=== PATIENT | male | born 1970 | race African-American/Black ===

== ENCOUNTER 2018-05-09 14:14 | Inpatient (IN) | payer OTHER ==
[2018-05-09 15:04] VITALS: BMI 34.7
--- NOTE | 2018-05-09 19:10 | HP ---
"CIWA Score - CIWA Score Nausea/Vomitin-Mild Nausea/No Vomiting Muscle Tremors: 4-Moderate,w/Arms Extend Anxiety: 4-Mod. Anxious/Guarded Agitation: 4-Moderately Restless Paroxysmal Sweats: 1-Minimal Palms Moist Orientation: 0-Oriented Tacttile Disturbances: 0-None Auditory Disturbances: 0-None Visual Disturbances: 0-None Headache: 2-Mild CIWA-Ar Total Score: 16 Admission ROS S - HPI Chief Complaint: Here for alcohol withdrawal. Allergies/Adverse Reactions: Allergies Allergy/AdvReac Type Severity Reaction Status Date / Time garlic Allergy Severe Swelling Verified 04/12/17 17:09 tomato Allergy Severe Swelling Verified 04/12/17 17:09 No Known Drug Allergies Allergy Verified 04/12/17 17:09 History of Present Illness: Alcohol use since age 16. Marijuana use since age 16. Crack/cocaine use since age 23. Denies opiate or benzo use. Denies seizures or blackouts. Hx sobriety from 92-97. Longest sobriety since then 10 months [id number] - was in a residential program. Hx: HTN, DM, acid reflux. Denies thoughts of harming self or others. Search Terms: Jayleen Nicole, 1970 Search Date: 05/09/2018 07:06:29 PM The Drug Utilization Report below displays all of the controlled substance prescriptions, if any, that your patient has filled in the last twelve months. The information displayed on this report is compiled from pharmacy submissions to the Department, and accurately reflects the information as submitted by the pharmacies. This report was requested by: Janet Martinez | Reference #: [id number] Patient Name: Jayleen Nicole Date: 1970 Address: [address] [place] [address] Sex: Male Rx Written Rx Dispensed Drug Quantity Days Supply Prescriber Name 03/26/2018 03/29/2018 androgel 1.62% gel pump 75gm 30 Heidi Melgar H 01/20/2018 01/21/2018 androgel 1.62% gel pump 75gm 30 Heidi eMlgar H 12/20/2017 12/23/2017 testosterone 50 mg/5 gram gel 30gm 30 Roberto Carlos Amor Jr, MD 09/27/2017 09/29/2017 androderm 4 mg/24hr patch 30 30 Lissett Loja D, TRANSFORMATION CONSULTANT Exam Limitations: No Limitations - Ebola screening Have you traveled outside of the country in the last 21 days: No Have you had contact with anyone from an Ebola affected area: No Have you been sick,other than usual withdrawal symptoms: No Do you have a fever: No - Review of Systems Constitutional: Chills, Diaphoresis, Weight Stable EENT: reports: No Symptoms Reported Respiratory: reports: No Symptoms reported Cardiac: reports: No Symptoms Reported GI: reports: Indigestion (Acid reflux) : reports: No Symptoms Reported Musculoskeletal: reports: No Symptoms Reported Integumentary: reports: No Symptoms Reported Neuro: reports: Headache (r/t withdrawal), Tremors Endocrine: reports: No Symptoms Reported Hematology: reports: No Symptoms Reported Psychiatric: reports: Judgement Intact, Orientated x3, Agitated, Anxious Patient History - Patient Medical History Hx Asthma: No Hx Chronic Obstructive Pulmonary Disease (COPD): No Hx Cardiac Disorders: No Hx Congestive Heart Failure: No Hx Hypertension: Yes (BP:144/67 on meds. Took today) Hx Hypercholesterolemia: No Hx Pacemaker: No HX Cerebrovascular Accident: No Hx Seizures: No Hx Dementia: No Hx Diabetes: Yes (BGM: 104mg/dl on Metformin) Hx Gastrointestinal Disorders: Yes (Acid Reflux) Hx Liver Disease: No Hx Genitourinary Disorders: No Hx Sexually Transmitted Disorders: No Hx Renal Disease (ESRD): No Hx Thyroid Disease: No Hx Human Immunodeficiency Virus (HIV): No (2017) Hx Hepatitis C: No Hx Depression: No Hx Suicide Attempt: No Hx Bipolar Disorder: No Hx Schizophrenia: No - Patient Surgical History Past Surgical History: No Hx Neurologic Surgery: No Hx Cataract Extraction: No Hx Cardiac Surgery: No Hx Lung Surgery: No Hx Breast Surgery: No Hx Breast Biopsy: No Hx Abdominal Surgery: No Hx Appendectomy: No Hx Cholecystectomy: No Hx Genitourinary Surgery: No Hx Orthopedic Surgery: No Anesthesia Reaction: No - PPD History Previous Implant?: Yes Documented Results: Negative w/o proof Date: 10/15/14 PPD to be Administered?: Yes - Smoking Cessation Smoking history: Current every day smoker Have you smoked in the past 12 months: Yes Aproximately how many cigarettes per day: 10 Hx Chewing Tobacco Use: No Initiated information on smoking cessation: Yes 'Breaking Loose' booklet given: 05/09/18 - Substance & Tx. History Hx Alcohol Use: Yes Hx Substance Use: Yes Substance Use Type: Alcohol, Cocaine (crack/cocaine), Marijuana Hx Substance Use Treatment: Yes (detox, rehabs, residential) - Substances Abused Alcohol Route: Oral Frequency: Daily Amount used: Liquor 1.5 pint/ Beer 2-3 x 40oz Age of first use: 16 Date of Last Use: 05/09/18 Crack Route: Smoking Frequency: Daily Amount used: $150 Age of first use: 23 Date of Last Use: 05/08/18 (10 pm) Marijuana/Hashish Route: Smoking Frequency: Daily Amount used: $25 Age of first use: 16 Date of Last Use: 05/09/18 (10 am) Admission Physical Exam S - Vital Signs Vital Signs: Vital Signs - 24 hr 05/09/18 15:02 Temperature 97.2 F L Pulse Rate 84 Respiratory 20 Rate Blood Pressure 144/67 - Physical General Appearance: Yes: Nourished, Mild Distress, Tremorous, Irritable, Sweating, Anxious HEENTM: Yes: EOMI (Involuntary movement of eyes w/ lateral gaze during EOMI ellicitation), Hearing grossly Normal, Normocephalic, Normal Voice, MEME Respiratory: Yes: Chest Non-Tender, Lungs Clear, Normal Breath Sounds, No Respiratory Distress Neck: Yes: No masses,lesions,Nodules, Supple Breast: Yes: Breast Exam Deferred Cardiology: Yes: Regular Rhythm, Regular Rate, S1, S2 (Split) Abdominal: Yes: Non Tender, Soft, Increased Bowel Sounds, Protuberent ( increased abdominal adiposity) Genitourinary: Yes: Within Normal Limits Back: Yes: Normal Inspection Musculoskeletal: Yes: full range of Motion, Gait Steady Extremities: Yes: Normal Capillary Refill, Normal Range of Motion, Non-Tender, Tremors (of hands when arms extended) Neurological: Yes: president II-XII NML intact (mild involutary movement of lateral gaze.), Fully Oriented, Alert, Motor Strength 5/5, Normal Mood/Affect Integumentary: Yes: Normal Color, Dry, Warm, Diaphoresis (forehead) Lymphatic: Yes: Within Normal Limits - Diagnostic (1) GERD (gastroesophageal reflux disease) Current Visit: Yes Status: Acute Qualifiers: Esophagitis presence: esophagitis presence not specified Qualified Code(s) : K21.9 - Gastro-esophageal reflux disease without esophagitis (2) Alcohol dependence Current Visit: No Status: Chronic Qualifiers: Substance use status: in withdrawal Complication of substance-induced condition: uncomplicated Qualified Code(s): F10.230 - Alcohol dependence with withdrawal, uncomplicated (3) Cannabis dependence Current Visit: Yes Status: Chronic (4) Cocaine dependence Current Visit: Yes Status: Chronic Qualifiers: Substance use status: uncomplicated Qualified Code(s): F14.20 - Cocaine dependence, uncomplicated (5) HTN (hypertension) Current Visit: Yes Status: Chronic Qualifiers: Hypertension type: essential hypertension Qualified Code(s): I10 - Essential (primary) hypertension (6) Obese Current Visit: Yes Status: Chronic Qualifiers: Obesity type: due to excess calories Obesity classification: adult class 1 (BMI 30 - 34.9) Serious obesity comorbidity presence: unspecified whether serious comorbidity present Body mass index: BMI 34.0-34.9 Qualified Code(s) : E66.09 - Other obesity due to excess calories; Z68.34 - Body mass index (BMI) 34.0-34.9, adult (7) Diabetes Current Visit: Yes Status: Acute Qualifiers: Diabetes mellitus type: type 2 Diabetes mellitus halfway insulin use: without halfway use Diabetes mellitus complication status: without complication Qualified Code(s): E11.9 - Type 2 diabetes mellitus without complications (8) Nicotine dependence Current Visit: Yes Status: Chronic Qualifiers: Nicotine product type: cigarettes Substance use status: in withdrawal Qualified Code(s): F17.213 - Nicotine dependence, cigarettes, with withdrawal Cleared for Admission S - Detox or Rehab [facility] Level of Care: Medically Managed Detox Regimen/Protocol: Librium [facility] Breath Alcohol Content Breath Alcohol Content: 0 Urine Drug Screen - Results Drug Screen Negative: No Urine Drug Screen Results: THC-Marijuana, NAOMI-Cocaine, BZO-Benzodiazepines"
[2018-05-09] MEDS ORDERED: hydrOXYzine PAMOATE 50 MG CAPSULE (FP) PO PRN (19:37)
[2018-05-09] MEDS ORDERED: MAGNESIUM HYDROX 2400MG/30ML ORAL SUSPENSION 30 ML CUP PO PRN (19:37)
[2018-05-09] MEDS ORDERED: P-EPHED 60MG/TRIPROLIDI 2.5MG TABLET PO PRN (19:37)
[2018-05-09] MEDS ORDERED: NICOTINE POLACRILEX 2 MG GUM BC PRN (19:37)
[2018-05-09] MEDS ORDERED: LOPERAMIDE HCL 2 MG CAPSULE PO PRN (19:37)
[2018-05-09] MEDS ORDERED: IBUPROFEN 400 MG TABLET (FP) PO PRN (19:37)
[2018-05-09] MEDS ORDERED: MAGNESIUM CITRATE 300 ML BOTTLE PO PRN (19:37)
[2018-05-09] MEDS ORDERED: guaiFENesin/D-METHORPHAN HB 10 ML UNIT-DOSE CUPS PO PRN (19:37)
[2018-05-09] MEDS ORDERED: ACETAMINOPHEN 325 MG TABLET (FP) PO PRN (19:37)
[2018-05-09] MEDS ORDERED: MENTHOL/PHENOL 1 EACH UD MM PRN (19:37)
[2018-05-09] MEDS ORDERED: chlordiazePOXIDE HCL 25 MG CAPSULE PO PRN (19:37)
[2018-05-09] MEDS: metFORMIN HCL 500 MG TABLET (FP) PO SCH (20:32)
[2018-05-09] MEDS ORDERED: MELATONIN 5 MG TABLETS PO PRN (22:00)
[2018-05-09] MEDS: THIAMINE HCL 100 MG TABLET (FP) PO SCH (22:42)
[2018-05-09] MEDS: RANITIDINE HCL 150 MG TABLET (FP) PO SCH (22:43)
[2018-05-09] MEDS: chlordiazePOXIDE HCL 25 MG CAPSULE PO SCH (22:43)
[2018-05-09 23:24] LABS: URINE APPEARANCE TURBID; URINE BILIRUBIN NEGATIVE (<2.0 mg/dL); URINE COLOR YELLOW; URINE GLUCOSE (UA) NEGATIVE (NEGATIVE); URINE KETONE NEGATIVE (NEGATIVE); URINE LEUK ESTERASE NEGATIVE (NEGATIVE); URINE NITRITE NEGATIVE (NEGATIVE); URINE UROBILINOGEN NEGATIVE mg/dL (0.2-1.0)
[2018-05-09 23:25] LABS: URINE PROTEIN 1+ (NEGATIVE)
[2018-05-09 23:28] LABS: URINE BACTERIA RARE /hpf (NONE SEEN); URINE MUCUS RARE
[2018-05-10] MEDS: chlordiazePOXIDE HCL 25 MG CAPSULE PO SCH ×4 (05:34→22:49)
[2018-05-10] MEDS: metFORMIN HCL 500 MG TABLET (FP) PO SCH ×2 (06:44→16:51)
[2018-05-10 10:29] LABS: HEMOGLOBIN 13.4 GM/dL (11.7-16.9); MCH 29.6 pg (25.7-33.7); MCHC 31.8 g/dl (32.0-35.9); MEAN CELL VOLUME 93.1 fl (80-96); MEAN PLT VOLUME 9.9 fl (7.5-11.1); PLATELET COUNT 230 K/MM3 (134-434); RBC 4.51 M/mm3 (4.00-5.60); WHITE BLOOD COUNT 4.8 K/mm3 (4.0-10.0)
[2018-05-10] MEDS: NICOTINE 14 MG/24 HOURS TOPICAL PATCH TD SCH (11:04)
[2018-05-10] MEDS: NIFEdipine E.R. 90 MG TABLET (FP) PO SCH (11:04)
[2018-05-10] MEDS: PRENATAL VITAMINS W/ FOLIC ACID TABLET (FP) PO SCH (11:04)
[2018-05-10 11:34] LABS: CHLORIDE 105 mmol/L (98-107); POTASSIUM 4.3 mmol/L (3.5-5.1); SODIUM 143 mmol/L (136-145)
[2018-05-10 11:57] LABS: ALBUMIN 3.4 g/dl (3.4-5.0); ALK PHOS 49 U/L (45-117); ANION GAP 9 MMOL/L (8-16); BILIRUBIN,TOTAL 0.3 mg/dL (0.2-1.0); BLOOD UREA NITROGEN 11 mg/dL (7-18); CALCIUM 9.1 mg/dL (8.5-10.1); CO2 29 mmol/L (21-32); CREATININE 1.2 mg/dL (0.7-1.3); GLUCOSE,RANDOM 103 mg/dL (74-106); SGOT/AST 27 U/L (15-37); SGPT/ALT 40 U/L (12-78); TOT PROT 6.8 g/dl (6.4-8.2)
--- NOTE | 2018-05-10 12:31 | CONSULT ---
[facility] Psychiatric Consult - Data Date of interview: 05/10/18 Identifying data: Roll Dough Divider approached patient bedside for psychiatric consultation. Pt. refused. Stated, " I don't need to see you. I'm fine." Nursing staff informed.
--- NOTE | 2018-05-10 14:31 | PN ---
[facility] CIWA - CIWA Score Nausea/Vomitin-Mild Nausea/No Vomiting Muscle Tremors: 4-Moderate,w/Arms Extend Anxiety: 3 Agitation: 3 Paroxysmal Sweats: 1-Minimal Palms Moist Orientation: 0-Oriented Tacttile Disturbances: 1-Very Mild Itch/Numbness Auditory Disturbances: 0-None Visual Disturbances: 0-None Headache: 0-None Present CIWA-Ar Total Score: 13 BHS Progress Note (SOAP) Subjective: sweat tremor restlessness anxiety Objective: 05/10/18 14:33 Vital Signs Temperature 97.7 F 05/10/18 13:18 Pulse Rate 84 05/10/18 13:18 Respiratory Rate 20 05/10/18 13:18 Blood Pressure 165/93 05/10/18 13:18 O2 Sat by Pulse Oximetry (%) Laboratory Last Values WBC 4.8 K/mm3 (4.0-10.0) 05/10/18 07:00 RBC 4.51 M/mm3 (4.00-5.60) 05/10/18 07:00 Hgb 13.4 GM/dL (11.7-16.9) 05/10/18 07:00 Hct 42.0 % (35.4-49) 05/10/18 07:00 MCV 93.1 fl (80-96) 05/10/18 07:00 MCH 29.6 pg (25.7-33.7) 05/10/18 07:00 MCHC 31.8 g/dl (32.0-35.9) L 05/10/18 07:00 RDW 16.0 % (11.9-15.9) H 05/10/18 07:00 Plt Count 230 K/MM3 (134-434) 05/10/18 07:00 MPV 9.9 fl (7.5-11.1) 05/10/18 07:00 Sodium 143 mmol/L (136-145) 05/10/18 07:00 Potassium 4.3 mmol/L (3.5-5.1) 05/10/18 07:00 Chloride 105 mmol/L (98-107) 05/10/18 07:00 Carbon Dioxide 29 mmol/L (21-32) 05/10/18 07:00 Anion Gap 9 MMOL/L (8-16) 05/10/18 07:00 BUN 11 mg/dL (7-18) 05/10/18 07:00 Creatinine 1.2 mg/dL (0.7-1.3) 05/10/18 07:00 Creat Clearance w eGFR > 60 (>60) 05/10/18 07:00 POC Glucometer 103 UNITS (80-120) 05/10/18 11:10 Random Glucose 103 mg/dL (74-106) D 05/10/18 07:00 Calcium 9.1 mg/dL (8.5-10.1) 05/10/18 07:00 Total Bilirubin 0.3 mg/dL (0.2-1.0) 05/10/18 07:00 AST 27 U/L (15-37) 05/10/18 07:00 ALT 40 U/L (12-78) 05/10/18 07:00 Alkaline Phosphatase 49 U/L (45-117) 05/10/18 07:00 Total Protein 6.8 g/dl (6.4-8.2) 05/10/18 07:00 Albumin 3.4 g/dl (3.4-5.0) 05/10/18 07:00 Urine Color Yellow 05/09/18 23:08 Urine Appearance Turbid 05/09/18 23:08 Urine pH 5.0 (5.0-8.0) 05/09/18 23:08 Ur Specific [place] 1.027 (1.001-1.035) 05/09/18 23:08 Urine Protein 1+ (NEGATIVE) H 05/09/18 23:08 Urine Glucose (UA) Negative (NEGATIVE) 05/09/18 23:08 Urine Ketones Negative (NEGATIVE) 05/09/18 23:08 Urine Blood Negative (NEGATIVE) 05/09/18 23:08 Urine Nitrite Negative (NEGATIVE) 05/09/18 23:08 Urine Bilirubin Negative (<2.0 mg/dL) 05/09/18 23:08 Urine Urobilinogen Negative mg/dL (0.2-1.0) 05/09/18 23:08 Ur Leukocyte Esterase Negative (NEGATIVE) 05/09/18 23:08 Urine WBC (Auto) 23 /hpf (3-5) 05/09/18 23:08 Urine RBC (Auto) 2 /hpf (0-3) 05/09/18 23:08 Urine Bacteria Rare /hpf (NONE SEEN) 05/09/18 23:08 Urine Mucus Rare 05/09/18 23:08 RPR Titer Nonreactive (NONREACTIVE) 05/10/18 07:00 lab noted Assessment: 05/10/18 14:39 withdrawal sx Plan: continue detox
--- NOTE | 2018-05-10 17:23 | EKG ---
Test Reason : Blood Pressure : / mmHG Vent. Rate : 078 BPM Atrial Rate : 078 BPM P-R Int : 158 ms QRS Dur : 090 ms QT Int : 392 ms P-R-T Axes : 065 062 009 degrees QTc Int : 446 ms NORMAL SINUS RHYTHM NORMAL ECG NO PREVIOUS ECGS AVAILABLE Confirmed by MD YOLANDA, TENISHA ([id number]) on 05/10/2018 5:22:46 PM Referred By: Confirmed By:TENISHA GUERRERO MD
[2018-05-10] MEDS: THIAMINE HCL 100 MG TABLET (FP) PO SCH (22:49)
[2018-05-10] MEDS: RANITIDINE HCL 150 MG TABLET (FP) PO SCH (22:49)
[2018-05-11] MEDS: chlordiazePOXIDE HCL 25 MG CAPSULE PO SCH ×3 (06:22→17:23)
[2018-05-11] MEDS: metFORMIN HCL 500 MG TABLET (FP) PO SCH ×2 (06:46→17:22)
[2018-05-11] MEDS: PRENATAL VITAMINS W/ FOLIC ACID TABLET (FP) PO SCH (10:12)
[2018-05-11] MEDS: NICOTINE 14 MG/24 HOURS TOPICAL PATCH TD SCH (10:12)
[2018-05-11] MEDS: NIFEdipine E.R. 90 MG TABLET (FP) PO SCH (10:12)
--- NOTE | 2018-05-11 12:58 | PN ---
[facility] CIWA - CIWA Score Nausea/Vomitin-Mild Nausea/No Vomiting Muscle Tremors: 3 Anxiety: 3 Agitation: 3 Paroxysmal Sweats: 1-Minimal Palms Moist Orientation: 0-Oriented Tacttile Disturbances: 1-Very Mild Itch/Numbness Auditory Disturbances: 0-None Visual Disturbances: 0-None Headache: 0-None Present CIWA-Ar Total Score: 12 BHS Progress Note (SOAP) Subjective: tremor sweat restlessness discuss aftercare patient is alert oriented x 3 Objective: 05/11/18 12:57 Vital Signs Temperature 97.0 F L 05/11/18 09:27 Pulse Rate 86 05/11/18 09:27 Respiratory Rate 18 05/11/18 09:27 Blood Pressure 153/76 05/11/18 09:27 O2 Sat by Pulse Oximetry (%) Laboratory Last Values WBC 4.8 K/mm3 (4.0-10.0) 05/10/18 07:00 RBC 4.51 M/mm3 (4.00-5.60) 05/10/18 07:00 Hgb 13.4 GM/dL (11.7-16.9) 05/10/18 07:00 Hct 42.0 % (35.4-49) 05/10/18 07:00 MCV 93.1 fl (80-96) 05/10/18 07:00 MCH 29.6 pg (25.7-33.7) 05/10/18 07:00 MCHC 31.8 g/dl (32.0-35.9) L 05/10/18 07:00 RDW 16.0 % (11.9-15.9) H 05/10/18 07:00 Plt Count 230 K/MM3 (134-434) 05/10/18 07:00 MPV 9.9 fl (7.5-11.1) 05/10/18 07:00 Sodium 143 mmol/L (136-145) 05/10/18 07:00 Potassium 4.3 mmol/L (3.5-5.1) 05/10/18 07:00 Chloride 105 mmol/L (98-107) 05/10/18 07:00 Carbon Dioxide 29 mmol/L (21-32) 05/10/18 07:00 Anion Gap 9 MMOL/L (8-16) 05/10/18 07:00 BUN 11 mg/dL (7-18) 05/10/18 07:00 Creatinine 1.2 mg/dL (0.7-1.3) 05/10/18 07:00 Creat Clearance w eGFR > 60 (>60) 05/10/18 07:00 POC Glucometer 102 UNITS (80-120) 05/11/18 06:23 Random Glucose 103 mg/dL (74-106) D 05/10/18 07:00 Calcium 9.1 mg/dL (8.5-10.1) 05/10/18 07:00 Total Bilirubin 0.3 mg/dL (0.2-1.0) 05/10/18 07:00 AST 27 U/L (15-37) 05/10/18 07:00 ALT 40 U/L (12-78) 05/10/18 07:00 Alkaline Phosphatase 49 U/L (45-117) 05/10/18 07:00 Total Protein 6.8 g/dl (6.4-8.2) 05/10/18 07:00 Albumin 3.4 g/dl (3.4-5.0) 05/10/18 07:00 Urine Color Yellow 05/09/18 23:08 Urine Appearance Turbid 05/09/18 23:08 Urine pH 5.0 (5.0-8.0) 05/09/18 23:08 Ur Specific [place] 1.027 (1.001-1.035) 05/09/18 23:08 Urine Protein 1+ (NEGATIVE) H 05/09/18 23:08 Urine Glucose (UA) Negative (NEGATIVE) 05/09/18 23:08 Urine Ketones Negative (NEGATIVE) 05/09/18 23:08 Urine Blood Negative (NEGATIVE) 05/09/18 23:08 Urine Nitrite Negative (NEGATIVE) 05/09/18 23:08 Urine Bilirubin Negative (<2.0 mg/dL) 05/09/18 23:08 Urine Urobilinogen Negative mg/dL (0.2-1.0) 05/09/18 23:08 Ur Leukocyte Esterase Negative (NEGATIVE) 05/09/18 23:08 Urine WBC (Auto) 23 /hpf (3-5) 05/09/18 23:08 Urine RBC (Auto) 2 /hpf (0-3) 05/09/18 23:08 Urine Bacteria Rare /hpf (NONE SEEN) 05/09/18 23:08 Urine Mucus Rare 05/09/18 23:08 RPR Titer Nonreactive (NONREACTIVE) 05/10/18 07:00 lab noted aware of medication non adhesive Assessment: 05/11/18 12:58 withdrawal sx Plan: continue detox
[2018-05-11] MEDS: MAG HYDROX/AL HYDROX/SIMETH 30 ML UNIT-DOSE CUP PO PRN (20:22)
[2018-05-11] MEDS: THIAMINE HCL 100 MG TABLET (FP) PO SCH (22:31)
[2018-05-11] MEDS: RANITIDINE HCL 150 MG TABLET (FP) PO SCH (22:31)
[2018-05-11] MEDS: chlordiazePOXIDE 5 MG CAPSULE PO SCH (22:31)
[2018-05-12] MEDS: chlordiazePOXIDE 5 MG CAPSULE PO SCH ×3 (05:37→18:40)
[2018-05-12] MEDS: metFORMIN HCL 500 MG TABLET (FP) PO SCH ×2 (06:14→18:39)
[2018-05-12] MEDS: NICOTINE 14 MG/24 HOURS TOPICAL PATCH TD SCH (10:15)
[2018-05-12] MEDS: PRENATAL VITAMINS W/ FOLIC ACID TABLET (FP) PO SCH (10:15)
[2018-05-12] MEDS: NIFEdipine E.R. 90 MG TABLET (FP) PO SCH (10:16)
--- NOTE | 2018-05-12 12:28 | PN ---
BHS Progress Note (SOAP) Subjective: feeling better no tremor less sweat sleep better at night Objective: 05/12/18 12:36 Vital Signs Temperature 97.9 F 05/12/18 09:07 Pulse Rate 93 H 05/12/18 09:07 Respiratory Rate 18 05/12/18 09:07 Blood Pressure 130/75 05/12/18 09:07 O2 Sat by Pulse Oximetry (%) Laboratory Last Values WBC 4.8 K/mm3 (4.0-10.0) 05/10/18 07:00 RBC 4.51 M/mm3 (4.00-5.60) 05/10/18 07:00 Hgb 13.4 GM/dL (11.7-16.9) 05/10/18 07:00 Hct 42.0 % (35.4-49) 05/10/18 07:00 MCV 93.1 fl (80-96) 05/10/18 07:00 MCH 29.6 pg (25.7-33.7) 05/10/18 07:00 MCHC 31.8 g/dl (32.0-35.9) L 05/10/18 07:00 RDW 16.0 % (11.9-15.9) H 05/10/18 07:00 Plt Count 230 K/MM3 (134-434) 05/10/18 07:00 MPV 9.9 fl (7.5-11.1) 05/10/18 07:00 Sodium 143 mmol/L (136-145) 05/10/18 07:00 Potassium 4.3 mmol/L (3.5-5.1) 05/10/18 07:00 Chloride 105 mmol/L (98-107) 05/10/18 07:00 Carbon Dioxide 29 mmol/L (21-32) 05/10/18 07:00 Anion Gap 9 MMOL/L (8-16) 05/10/18 07:00 BUN 11 mg/dL (7-18) 05/10/18 07:00 Creatinine 1.2 mg/dL (0.7-1.3) 05/10/18 07:00 Creat Clearance w eGFR > 60 (>60) 05/10/18 07:00 POC Glucometer 113 UNITS (80-120) 05/12/18 05:39 Random Glucose 103 mg/dL (74-106) D 05/10/18 07:00 Calcium 9.1 mg/dL (8.5-10.1) 05/10/18 07:00 Total Bilirubin 0.3 mg/dL (0.2-1.0) 05/10/18 07:00 AST 27 U/L (15-37) 05/10/18 07:00 ALT 40 U/L (12-78) 05/10/18 07:00 Alkaline Phosphatase 49 U/L (45-117) 05/10/18 07:00 Total Protein 6.8 g/dl (6.4-8.2) 05/10/18 07:00 Albumin 3.4 g/dl (3.4-5.0) 05/10/18 07:00 Urine Color Yellow 05/09/18 23:08 Urine Appearance Turbid 05/09/18 23:08 Urine pH 5.0 (5.0-8.0) 05/09/18 23:08 Ur Specific [place] 1.027 (1.001-1.035) 05/09/18 23:08 Urine Protein 1+ (NEGATIVE) H 05/09/18 23:08 Urine Glucose (UA) Negative (NEGATIVE) 05/09/18 23:08 Urine Ketones Negative (NEGATIVE) 05/09/18 23:08 Urine Blood Negative (NEGATIVE) 05/09/18 23:08 Urine Nitrite Negative (NEGATIVE) 05/09/18 23:08 Urine Bilirubin Negative (<2.0 mg/dL) 05/09/18 23:08 Urine Urobilinogen Negative mg/dL (0.2-1.0) 05/09/18 23:08 Ur Leukocyte Esterase Negative (NEGATIVE) 05/09/18 23:08 Urine WBC (Auto) 23 /hpf (3-5) 05/09/18 23:08 Urine RBC (Auto) 2 /hpf (0-3) 05/09/18 23:08 Urine Bacteria Rare /hpf (NONE SEEN) 05/09/18 23:08 Urine Mucus Rare 05/09/18 23:08 RPR Titer Nonreactive (NONREACTIVE) 05/10/18 07:00 lab noted Assessment: 05/12/18 12:37 mild withdrawal sx Plan: medically supervised detox
[2018-05-12] MEDS: CLOTRIMAZOLE 1% CREAM 15 GM TUBE TP SCH ×3 (13:00→23:05)
[2018-05-12] MEDS: MAG HYDROX/AL HYDROX/SIMETH 30 ML UNIT-DOSE CUP PO PRN (20:22)
[2018-05-12] MEDS: chlordiazePOXIDE HCL 10 MG CAPSULE PO SCH (22:15)
[2018-05-12] MEDS: RANITIDINE HCL 150 MG TABLET (FP) PO SCH (22:16)
[2018-05-12] MEDS: THIAMINE HCL 100 MG TABLET (FP) PO SCH (23:05)
[2018-05-13] MEDS: chlordiazePOXIDE HCL 10 MG CAPSULE PO SCH (06:05)
[2018-05-13] MEDS: metFORMIN HCL 500 MG TABLET (FP) PO SCH (06:08)
--- NOTE | 2018-05-13 08:51 | DS ---
[facility] Detox Discharge Summary Admission Date: 05/09/18 Discharge Date: 05/13/18 - History Present History: Alcohol Dependence, Cannabis Dependence, Cocaine Dependence - Physical Exam Results Vital Signs: Vital Signs Temperature 97.7 F 05/13/18 06:22 Pulse Rate 88 05/13/18 06:22 Respiratory Rate 20 05/13/18 06:22 Blood Pressure 113/58 05/13/18 06:22 O2 Sat by Pulse Oximetry (%) - Treatment Hospital Course: Detox Protocol Followed, Detoxed Safely, Responded well, Discharged Condition Good, Rehab Referral Accepted - Medication Discharge Medications: Ambulatory Orders Ranitidine HCl [Zantac] 150 mg PO HS 05/09/18 Nifedipine ER [Procardia XL -] 90 mg PO DAILY #30 [id number] 05/12/18 metFORMIN HCL [Metformin HCl] 1,000 mg PO BID #60 tablet 05/12/18 - Diagnosis (1) Diabetes Current Visit: Yes Status: Chronic Qualifiers: Diabetes mellitus type: type 2 Diabetes mellitus watermelon inspector insulin use: without halfway use Diabetes mellitus complication status: without complication Qualified Code(s): E11.9 - Type 2 diabetes mellitus without complications (2) GERD (gastroesophageal reflux disease) Current Visit: Yes Status: Acute Qualifiers: Esophagitis presence: esophagitis presence not specified Qualified Code(s) : K21.9 - Gastro-esophageal reflux disease without esophagitis (3) Cannabis dependence Current Visit: Yes Status: Chronic (4) Cocaine dependence Current Visit: Yes Status: Chronic Qualifiers: Substance use status: uncomplicated Qualified Code(s): F14.20 - Cocaine dependence, uncomplicated (5) HTN (hypertension) Current Visit: Yes Status: Chronic Qualifiers: Hypertension type: essential hypertension Qualified Code(s): I10 - Essential (primary) hypertension (6) Nicotine dependence Current Visit: Yes Status: Chronic Qualifiers: Nicotine product type: cigarettes Substance use status: in withdrawal Qualified Code(s): F17.213 - Nicotine dependence, cigarettes, with withdrawal (7) Obese Current Visit: Yes Status: Chronic Qualifiers: Obesity type: due to excess calories Obesity classification: adult class 1 (BMI 30 - 34.9) Serious obesity comorbidity presence: unspecified whether serious comorbidity present Body mass index: BMI 34.0-34.9 Qualified Code(s) : E66.09 - Other obesity due to excess calories; Z68.34 - Body mass index (BMI) 34.0-34.9, adult (8) Alcohol dependence Current Visit: No Status: Chronic Qualifiers: Substance use status: in withdrawal Complication of substance-induced condition: uncomplicated Qualified Code(s): F10.230 - Alcohol dependence with withdrawal, uncomplicated - AMA Did Patient Leave Against Medical Advice: No
[2018-05-13] MEDS: PRENATAL VITAMINS W/ FOLIC ACID TABLET (FP) PO SCH (09:11)
[2018-05-13] MEDS: NIFEdipine E.R. 90 MG TABLET (FP) PO SCH (09:11)
[2018-05-13] MEDS: NICOTINE 14 MG/24 HOURS TOPICAL PATCH TD SCH (09:12)
[2018-05-13] MEDS: CLOTRIMAZOLE 1% CREAM 15 GM TUBE TP SCH (09:12)
[2018-05-13 09:59] VITALS: BP 116/82; PULSE 94; TEMP 97.3
== END 2018-05-13 09:16 | disposition home or self-care (01) | DRG 774 ==
LOC: YASAS 14:14 → Y6N 18:17
PROC: HZ2ZZZZ Detoxification Services for Substance Abuse Treatment (ICD-10-PCS; principal; 2018-05-09)
DX: F10.230 Alcohol dependence with withdrawal, uncomplicated (principal); F14.20 Cocaine dependence, uncomplicated; F12.20 Cannabis dependence, uncomplicated; F17.213 Nicotine dependence, cigarettes, with withdrawal; I10 Essential (primary) hypertension; E11.9 Type 2 diabetes mellitus without complications; Z79.84 Long term (current) use of oral hypoglycemic drugs; K21.9 Gastro-esophageal reflux disease without esophagitis; E66.09 Other obesity due to excess calories; Z68.34 Body mass index [BMI] 34.0-34.9, adult
CPT/HCPCS: 36415; 80053; 81003; 81015; 82962; 85027; 86593; 93005; 93010

== ENCOUNTER 2023-11-14 09:06 | Inpatient (IN) | payer OTHER ==
[2023-11-14 10:02] VITALS: BMI 36.7
[2023-11-14] MEDS ORDERED: MAGNESIUM HYDROX 2400MG/30ML ORAL SUSPENSION 30 ML CUP PO PRN (10:24)
[2023-11-14] MEDS ORDERED: guaiFENesin 600 MG TABLET.ER (FP) PO PRN (10:24)
[2023-11-14] MEDS ORDERED: ACETAMINOPHEN 325 MG TABLET (FP) PO PRN (10:24)
[2023-11-14] MEDS ORDERED: BENZONATATE 200 MG CAPSULE PO PRN (10:24)
[2023-11-14] MEDS ORDERED: BISMUTH SUBSALICYLATE 524 MG/30 ML PO PRN (10:24)
[2023-11-14] MEDS ORDERED: METHOCARBAMOL 500 MG TABLET PO PRN (10:24)
[2023-11-14] MEDS ORDERED: ONDANSETRON *ODT* 4 MG TABLET SL PRN (10:24)
[2023-11-14] MEDS ORDERED: BENZOCAINE/MENTHOL (CHLORASEPTIC ) LOZENGE MM PRN (10:24)
[2023-11-14] MEDS ORDERED: LOPERAMIDE HCL 2 MG CAPSULE PO PRN (10:24)
[2023-11-14] MEDS ORDERED: DICYCLOMINE HCL 10 MG CAPSULE PO PRN (10:24)
[2023-11-14] MEDS ORDERED: P-EPHED 60MG/TRIPROLIDI 2.5MG TABLET PO PRN (10:24)
[2023-11-14] MEDS ORDERED: IBUPROFEN 400 MG TABLET (FP) PO PRN (10:24)
[2023-11-14] MEDS ORDERED: POLYETHYLENE GLYCOL (HEALTHYLAX) 3350 17 GM PACKET PO PRN (10:24)
[2023-11-14] MEDS ORDERED: NICOTINE POLACRILEX 2 MG GUM BUC PRN (10:24)
[2023-11-14] MEDS ORDERED: MAG HYDROX/AL HYDROX/SIMETH 30 ML UNIT-DOSE CUP PO PRN (10:24)
[2023-11-14] MEDS: metFORMIN HCL 500 MG TABLET (FP) PO SCH (17:30)
[2023-11-14] MEDS: SACUBITRIL/VALSARTAN 97 MG-103 MG TABLET PO SCH (17:49)
[2023-11-14] MEDS ORDERED: EMPAGLIFLOZIN (JARDIANCE) 10 MG TABLET PO SCH (22:00)
[2023-11-14] MEDS: MELATONIN 5 MG TABLETS PO SCH (22:25)
[2023-11-14] MEDS: THIAMINE HCL 100 MG TABLET (FP) PO SCH (22:26)
[2023-11-15 09:24] VITALS: BP 158/100; PULSE 78; RESP 18; TEMP 97.8
[2023-11-15] MEDS: FAMOTIDINE 20 MG TABLET PO SCH (09:58)
[2023-11-15] MEDS: EMPAGLIFLOZIN (JARDIANCE) 25 MG TABLET PO SCH (09:58)
[2023-11-15] MEDS: PRENATAL VITAMINS W/ FOLIC ACID TABLET (FP) PO SCH (09:58)
[2023-11-15 10:10] LABS: HEMOGLOBIN 14.6 GM/dL (11.7-16.9); MCH 30.8 pg (25.7-33.7); MCHC 33.2 g/dl (32.0-35.9); MEAN CELL VOLUME 92.7 fl (80-96); MEAN PLT VOLUME 10.4 fl (7.5-11.1); RBC 4.75 M/mm3 (4.00-5.60); WHITE BLOOD COUNT 5.5 K/mm3 (4.0-10.0)
[2023-11-15 10:12] LABS: PLATELET COUNT 170 10^3/uL (134-434)
[2023-11-15 10:15] LABS: POTASSIUM 4.3 mmol/L (3.5-5.1)
[2023-11-15 10:34] LABS: ALBUMIN 3.4 g/dl (3.4-5.0); CALCIUM 8.9 mg/dL (8.5-10.1)
[2023-11-15 10:35] LABS: BLOOD UREA NITROGEN 21.2 mg/dL (7-18)
[2023-11-15 10:37] LABS: CREATININE 1.5 mg/dL (0.55-1.3)
[2023-11-15 10:39] LABS: BILIRUBIN,TOTAL 0.4 mg/dL (0.2-1); TOT PROT 6.7 g/dl (6.4-8.2)
== END 2023-11-15 10:15 | disposition other institution (70) | DRG 774 ==
LOC: YASAS 09:06 → Y3N 10:51
PROVIDERS: ADMIT Allergy & Immunology; ATTEND Surgery
PROC: HZ2ZZZZ Detoxification Services for Substance Abuse Treatment (ICD-10-PCS; principal; 2023-11-14)
DX: F10.20 Alcohol dependence, uncomplicated (principal); F14.10 Cocaine abuse, uncomplicated; F12.20 Cannabis dependence, uncomplicated; F17.210 Nicotine dependence, cigarettes, uncomplicated; I25.10 Atherosclerotic heart disease of native coronary artery without angina pectoris; I10 Essential (primary) hypertension; Z95.1 Presence of aortocoronary bypass graft; E11.9 Type 2 diabetes mellitus without complications; Z79.84 Long term (current) use of oral hypoglycemic drugs; K21.9 Gastro-esophageal reflux disease without esophagitis; Z88.8 Allergy status to other drugs, medicaments and biological substances
CPT/HCPCS: 36415; 80053; 80305; 82962; 85027; 86780; 87635; 93005; 93010